=== PATIENT | female | born 1970 | race Caucasian/White ===

== ENCOUNTER 2019-02-18 10:02 | Observation (INO) | payer SELFPAY ==
[~2019-02-18 10:02] MED LIST: DEXAMETHASONE INJ 10 MG/ML VIAL IV ONE; LIDOCAINE 1% 10 ML VIAL INJ ONE; METOPROLOL TARTRATE INJ 5 MG/5 ML VIAL IV ONE; PROPOFOL 200 MG/20 ML VIAL IV ONE; raNITIdine HCL INJ 25 MG/ML VIAL IV ONE
[2019-02-18] MEDS ORDERED: HYDROmorphone HCL INJ 2 MG/ML VIAL IV ONE ×3 (10:52→13:22)
[2019-02-18] MEDS ORDERED: ONDANSETRON INJ 4 MG/2 ML VIAL IV ONE (10:52)
[2019-02-18] MEDS ORDERED: SODIUM CHLORIDE 0.9% 1000ML 1,000 ML IVS ONE (10:53)
--- NOTE | 2019-02-18 11:19 | ED.PDOC ---
History of Present Illness - General Chief Complaint: Abdominal Pain Stated Complaint: abdominal pain Time Seen by Provider: 02/18/19 10:25 Information Source: patient, family Exam Limitations: no limitations - History of Present Illness Initial Comments: RUQ PAIN X 3 WKS, RADIATES TO R SHOULDER. WORSE YESTERDAY. INTERMITTENT. NO APPETITE. POS N/V X SEVERAL EPISODES. PSH: JUST TUBAL LIGATION. STILL HAS HER GB. LMP 3 WKS AGO. Abdominal Pain Onset Location: RUQ Pain Radiation: shoulder Quality: severe, intermittent, waxing/waning Timing/Duration: getting worse Improving Factors: nothing Worsening Factors: eating Associated Symptoms: diaphoresis, nausea/vomiting Review of Systems - Review of Systems Constitutional: States: diaphoresis. Denies: chills, fever EENTM: States: no symptoms reported Respiratory: States: no symptoms reported. Denies: short of breath Cardiology: States: no symptoms reported. Denies: chest pain Gastrointestinal/Abdominal: States: abdominal pain, nausea, vomiting. Denies: constipation, diarrhea Genitourinary: Denies: dysuria, frequency, pain Musculoskeletal: States: no symptoms reported Skin: States: no symptoms reported Neurological: States: no symptoms reported Endocrine: States: no symptoms reported Hematologic/Lymphatic: States: no symptoms reported All other Systems: Reviewed and Negative Past Medical History (General) - Patient Medical History Hx Stroke: No Hx Congestive Heart Failure: No Hx Hypertension: Yes Hx Diabetes: No - Vaccination History Hx Influenza Vaccination: No Hx Pneumococcal Vaccination: No - Social History Hx Tobacco Use: No - Female History Patient is a Female of Child Bearing Age (10 -59 yrs old): Yes Family Medical History - Family History Father Family History: Unknown Living Status: Still Living Hx Family Cancer: Yes - father with squamous cell CA Physical Exam - Physical Exam General Appearance: Alert, Obvious distress Eyes, Ears, Nose, Throat Exam: PERRL/EOMI, normal ENT inspection Neck: non-tender, full range of motion Respiratory: chest non-tender, lungs clear Cardiovascular/Chest: normal peripheral pulses, regular rate, rhythm Peripheral Pulses: No deficit Gastrointestinal/Abdominal: soft, no organomegaly, no pulsatile mass, abnormal bowel sounds - DECREASED BUT NOT ABSENT. , tenderness - RUQ PAIN. POS WILKINS'S SIGN. NEG ROVSING'S SIGN. Back Exam: normal inspection, no CVA tenderness, no vertebral tenderness Extremity: normal range of motion, non-tender Neurologic: no motor/sensory deficits, normal mood/affect Skin Exam: normal color, warm/dry Lymphatic: no adenopathy Progress - Progress Progress: 02/18/19 13:28 ACUTE CHOLECYSTITIS AND CHOLELITHIASIS PER U/S. I SPOKE WITH NATALY OLIVEROS WHO IS ADMITTING HOSPITALIST. I SPOKE WITH DR. HAWKINS, GEN SURGERY, WHO PLANS FOR CHOLECYSTECTOMY TOMORROW AM. THANK YOU, [facility], FOR TAKING CARE OF THIS PATIENT. PAIN CONTROL NPO AFTER MN STARTING ZOSYN MAINTENANCE IVF. Departure - Departure Clinical Impression: Acute cholecystitis due to biliary calculus, RUQ abdominal pain, Bilirubinemia, Neutrophilic leukocytosis, Thrombocytosis, Elevated red blood cell count Cholelithiasis Qualifiers: Cholelithiasis location: gallbladder Cholecystitis presence: with cholecystitis Cholecystitis acuity: acute Biliary obstruction: without biliary obstruction Qualified Code(s): K80.00 - Calculus of gallbladder with acute cholecystitis without obstruction Nausea & vomiting Qualifiers: Vomiting type: unspecified Vomiting Intractability: non-intractable Qualified Code(s): R11.2 - Nausea with vomiting, unspecified Ascites Qualifiers: Ascites type: other type Qualified Code(s): R18.8 - Other ascites Disposition: Admit Patient Condition: Good Diet: low fat, low cholesterol Home Medications: Ambulatory Orders Aspirin [Aspirin Adult Low Dose] 81 mg PO DAILY 02/18/19 Control Pill 1 ea PO DAILY 02/18/19 Lisinopril 20 mg PO DAILY 02/18/19 Decision To Admit - Decistion To Admit Decision to Admit Reason: Admit from ER Decision to Admit Date: 02/18/19 Decision to Admit Time: 13:35
--- NOTE | 2019-02-18 12:42 | US ---
EXAM DESCRIPTION: Liver: ULTRASOUND. CLINICAL HISTORY: RUQ PAIN, SUSPECT ACUTE CHOLECYSTITIS. COMPARISON: None. TECHNIQUE: Transabdominal scannin-dimensional and Doppler modes. FINDINGS: Gallbladder: At least to gravity dependent stones with acoustic shadowing in the gallbladder measuring 9.2 and 9.8 mm. Fluid in Morison's pouch. Wall thickening 4.5 mm tender with transducer pressure. Common bile duct: caliber 5.4 mm within normal limits. Liver: normal echogenicity; contour liver capsule smooth where seen. Ascites around the liver. Intrahepatic biliary ducts normal caliber. Doppler hepatopedal flow portal vein. 9.4 mm. Long axis right lobe 13.3 cm Pancreas: normal size and echogenicity. Duct not seen. Right kidney: long axis measures 11.2 cm. Increased cortical echogenicity. Cortical thickness 11 mm. No hydronephrosis. 3.2 mm echogenic stone in the cortex. Ascites lateral to the kidney and lateral to the spleen. Also in the bilateral lower quadrants. IMPRESSION: 1. Gallbladder wall thickening with fluid in Morison's pouch. 2 gravity dependent stones. Wall thickening and tenderness with transducer pressure. Consistent with acute cholecystitis and cholelithiasis. Common bile duct caliber. Ascites in all 4 abdominal quadrants. 2. Liver normal echogenicity and normal ducts. Normal portal vein flow. Smooth capsule. Pancreas negative. 3. Right kidney with increased echogenicity in the cortex and minimal thinning. Small cortical stone but no hydronephrosis. Fluid abutting the right perirenal space. Electronically signed by: Pernell Acuna MD 02/18/2019 12:41 PM CDT
[2019-02-18] MEDS ORDERED: KCL 20MEQ/D5 1/2NS 1,000 ML IVS PRN (13:25)
[2019-02-18] MEDS ORDERED: PIPERACILLIN/TAZOBACTAM 3.375 GM in SODIUM CHLORIDE 0.9% 100ML 100 ML IVPB ONE (13:26)
[2019-02-18] MEDS ORDERED: PIPERACILLIN/TAZOBACTAM 3.375 GM VIAL IVPB ONE ×3 (13:32→21:54)
[2019-02-18] MEDS ORDERED: SODIUM CHLORIDE 0.9% 100ML 100 ML IVPB ONE ×3 (13:32→21:55)
--- NOTE | 2019-02-18 14:04 | HP ---
SUPERVISING PHYSICIAN: Den Ruiz MD CHIEF COMPLAINT: Right upper quadrant abdominal pain. HISTORY OF PRESENT ILLNESS: This is a 48-year-old female who states approximately 5 weeks ago, she started to develop some right upper quadrant pain that was intermittent. She associates this with driving her parents back and forth to [place] as her father has some squamous cell cancer that is being treated there. She states they eat at terrible restaurants and she has noted that after eating fatty foods, her symptoms are exacerbated. Throughout this time she has intermittently had some night sweats as well. However, last night, she had night sweats, nausea and vomiting as well as diarrhea. The right upper quadrant worsened and she actually had some pain in her right shoulder. Therefore, she came to the Emergency Room. When she came into the Emergency Room, her workup included lab as well as a liver ultrasound. The liver ultrasound showed gallbladder wall thickening with 2 stones. There was some tenderness with the transducer pressure and she was found to have findings consistent with acute cholecystitis. There was also found to be ascites in all 4 abdominal quadrants. Her labs were done and showed white count 12.5, hemoglobin 13.2, hematocrit 22.5, platelet count 490. She does have a left shift at 90.4 neutrophils. Chemistry shows a sodium 141, potassium 4.5, chloride 105, CO2 20, BUN 18, creatinine 1.25, glucose 159, bilirubin 1.2, AST 19, ALT 17, calcium 9.4. Lipase 29 and test is negative. Dr. Gan was consulted by the ER physician and the patient has been referred for admission for elective cholecystitis as it will probably be performed tomorrow. The patient has gotten Zosyn in the Emergency Room as well as Dilaudid for pain control. PAST MEDICAL HISTORY: 1. Hypertension, which was recently diagnosed. She does not have a primary care physician, however, went to see "[place]", who is Mamadou Ventura, who prescribed some lisinopril. 2. History of vaginal bleeding for which she sees an TABLET REPAIR in [place] and she takes control for this. PAST SURGICAL HISTORY: 1. Tubal ligation. MEDICATIONS: 1. Lisinopril 20 mg daily. 2. Aspirin 81 mg daily. 3. control pill. ALLERGIES: MEPERIDINE. FAMILY HISTORY: She does not know if any of her family have had any gallbladder issues, but her father has squamous cell carcinoma and both parents have hypertension. She is unaware of any diabetes. SOCIAL HISTORY: No drinking, smoking or illicit drugs. REVIEW OF SYSTEMS: CONSTITUTIONAL: Possible fever. No significant chills. No recent weight loss or weight gain. HEENT: No headaches, vision changes, ear pain, nasal congestion or throat pain. RESPIRATORY: No cough, hemoptysis or pleuritic chest pain. CARDIOVASCULAR: No chest pain, palpitations or peripheral edema. GASTROINTESTINAL: Positive for nausea, vomiting, diarrhea and right upper quadrant abdominal pain with radiation to the right shoulder. No constipation. GENITOURINARY: No dysuria, frequency or flank pain. HEMATOLOGIC: No easy bruising and no transfusion reaction. MUSCULOSKELETAL: No muscle cramps, joint pain or joint swelling. ENDOCRINE: No polydipsia, polyuria or polyphagia. No heat or cold intolerance. NEUROLOGIC: No syncope, paresthesias or seizures. PHYSICAL EXAMINATION: VITAL SIGNS: Blood pressure 120/74. Heart rate 62. Respiratory rate 16. Temperature 98.0. Oxygen saturation 99%. GENERAL: Ms. Ling is a 48-year-old female who is in no active distress currently. NEUROLOGIC: The patient is a little bit drowsy and slow to respond due to the Dilaudid she got earlier, but there are no focal deficits. CHEST: Lungs are clear to auscultation bilaterally. CARDIOVASCULAR: Regular rate and rhythm. Normal S1, S2. ABDOMEN: Soft. Positive bowel sounds. She complaints of tenderness to palpation in the right upper quadrant. GENITOURINARY: Deferred. EXTREMITIES: Lower extremities with pulses 2+. Capillary refill is less than 2 seconds. LABORATORY: Labs and diagnostics are as discussed in history of present illness. ASSESSMENT: 1. Acute cholecystitis. 2. Hypertension. 3. Mild metabolic acidosis on chemistry. PLAN: The patient will be admitted and placed on empiric antibiotics with Zosyn. She has already received one dose in the ER. She is also going to be placed on pain control medications. As Elias worked in the Emergency Room, we will continue that medication. She can have clear liquids throughout the day and then NPO after midnight. Dr. Gan is the surgeon consulted and he will perform cholecystectomy in the morning. She will be placed on a proton pump inhibitor for GI ulcer prophylaxis and early ambulation for DVT prophylaxis. [facility][id number] [facility]
[2019-02-18] MEDS ORDERED: SODIUM CHLORIDE 0.9% (FLUSH) 10 ML SYG IV PRN (14:19)
[2019-02-18] MEDS ORDERED: ONDANSETRON INJ 4 MG/2 ML VIAL IV PRN (14:25)
[2019-02-18] MEDS ORDERED: IV SET AND CAP CHANGE INJ INJ SCH (14:30)
[2019-02-18] MEDS ORDERED: PIPERACILLIN/TAZOBACTAM 3.375 GM in SODIUM CHLORIDE 0.9% 100ML 100 ML IVPB SCH ×2 (14:30→18:30)
[2019-02-18] MEDS: PANTOPRAZOLE SODIUM IV 40 MG VIAL IV SCH (15:32)
[2019-02-18] MEDS: LACTATED RINGERS 1,000 ML IVS PRN (18:20)
[2019-02-18] MEDS: HYDROmorphone HCL INJ 2 MG/ML VIAL IV PRN ×2 (19:40→23:29)
[2019-02-18] MEDS: PIPERACILLIN/TAZOBACTAM 3.375 GM in SODIUM CHLORIDE 0.9% 100ML 100 ML IVPB SCH (21:00)
[2019-02-19] MEDS: HYDROmorphone HCL INJ 2 MG/ML VIAL IV PRN ×2 (03:59→09:30)
[2019-02-19] MEDS: LACTATED RINGERS 1,000 ML IVS PRN (05:39)
[2019-02-19] MEDS: PIPERACILLIN/TAZOBACTAM 3.375 GM in SODIUM CHLORIDE 0.9% 100ML 100 ML IVPB SCH ×2 (05:40→14:19)
[2019-02-19] MEDS: PANTOPRAZOLE SODIUM IV 40 MG VIAL IV SCH (06:13)
--- NOTE | 2019-02-19 09:24 | PN ---
SUPERVISING PHYSICIAN: Den Ruiz MD DATE: 02/19/19 SUBJECTIVE: The patient still complains of a little bit of right upper quadrant pain, but it has been controlled with the Dilaudid. Otherwise, she has no complaints. OBJECTIVE: VITAL SIGNS: Blood pressure 127/76. Heart rate 70. Respiratory rate 17. Temperature 98.8. Oxygen saturation 97%. GENERAL: Ms. Ling is a 48-year-old female in no active distress currently. NEUROLOGIC: Alert and oriented. LUNGS: Clear to auscultation bilaterally. CARDIOVASCULAR: Regular rate and rhythm. Normal S1, S2. ABDOMEN: Soft. Positive bowel sounds. Still with right upper quadrant tenderness to palpation. LABORATORY: White count 9.4, hemoglobin 8.8 this morning. We repeated it and it was 9.0. Platelet count 306. Chemistry shows a sodium 139, potassium 3.8, chloride 107, CO2 22, BUN 14, creatinine 0.83, calcium 8.3, bilirubin normalized to 0.9. ASSESSMENT: 1. Acute cholecystitis. 2. Hypertension. 3. Mild metabolic acidosis, resolved. PLAN: We will still plan for cholecystectomy today. She has been NPO. We will continue pain medications until that time. She did have a drop in hemoglobin, but it almost seems this was due to dilutional from IV fluids. A repeat did not have any precipitous drops. We will discuss this with Dr. Gan. I did type and screen just in case that there was a drop, but given the repeat was no worse, we are not recommending any blood transfusion at this time. [facility][id number] [facility]
[2019-02-19] MEDS: LISINOPRIL 10 MG TAB PO SCH ×2 (09:45→14:53)
[2019-02-19] MEDS ORDERED: SODIUM CHLORIDE 0.9% 250ML 250 ML ONE (10:12)
[2019-02-19] MEDS ORDERED: fentaNYL CITRATE INJ 50 MCG/ML AMP ONE (10:26)
[2019-02-19] MEDS ORDERED: MIDAZOLAM INJ 2 MG/2 ML VIAL ONE (10:26)
[2019-02-19] MEDS ORDERED: BUPIVACAINE 0.5% W/EPI 30 ML VIAL INJ ONE (10:26)
[2019-02-19] MEDS ORDERED: ROCURONIUM BROMIDE 10 MG/ML VIAL ONE (10:27)
[2019-02-19] MEDS ORDERED: SODIUM CHLORIDE 0.9% 1000ML 1,000 ML ONE ×2 (10:28→14:17)
[2019-02-19] MEDS ORDERED: ELECTROLYTE-A 1,000 ML IVS ONE (11:22)
[2019-02-19] MEDS ORDERED: KETAMINE HCL 50 MG/ML SYG IV ONE (11:23)
[2019-02-19] MEDS ORDERED: hydrALAZINE HCl 20 MG/ML VIAL ONE (11:41)
[2019-02-19] MEDS ORDERED: SUGAMMADEX SODIUM 200 MG/2 ML VIAL IV ONE (11:52)
[2019-02-19] MEDS ORDERED: HYDROmorphone HCL INJ 2 MG/ML VIAL ONE (12:27)
[2019-02-19] MEDS ORDERED: ONDANSETRON INJ 4 MG/2 ML VIAL ONE (12:37)
[2019-02-19] MEDS ORDERED: HYDROmorphone HCL INJ 2 MG/ML VIAL IV ONE ×3 (12:46→13:00)
[2019-02-19] MEDS ORDERED: PIPERACILLIN/TAZOBACTAM 3.375 GM VIAL IVPB ONE (12:50)
[2019-02-19] MEDS ORDERED: SODIUM CHLORIDE 0.9% 100ML 100 ML IVPB ONE ×2 (12:50→13:05)
[2019-02-19] MEDS ORDERED: PROMETHAZINE HCL INJ 25 MG/ML VIAL ONE (13:05)
--- NOTE | 2019-02-19 13:16 | OP ---
DATE OF PROCEDURE: 02/19/19 PREOPERATIVE DIAGNOSIS: 1. Acute cholecystitis. POSTOPERATIVE DIAGNOSIS: 1. Acute cholecystectomy. PROCEDURE: 1. Laparoscopic cholecystectomy with intraoperative cholangiogram. SURGEON: Jorge Gan MD. ANESTHESIA: General and local. FINDINGS: She had an acutely inflamed gallbladder with some bile stain ascites. No perforation. Cholangiogram showed normal anatomy with free flow throughout and no filling defect. COMPLICATIONS: None. ESTIMATED BLOOD LOSS: None. SPECIMEN: Gallbladder. CONDITION: Stable. PLAN: Admit. SPECIMEN: Gallbladder. INDICATION: The patient is a 48-year-old woman with over a week of abdominal pain and was admitted through the Emergency Room last night with signs and symptoms and studies consistent with acute cholecystitis. She was consented for the procedure including all risks and benefits. She understood and wished to proceed. PROCEDURE: The patient was brought to the Operative Suite in supine position. General anesthesia was induced. She was prepped and draped in sterile fashion. Marcaine 0.5% with epinephrine was used all incision sites while maintaining upward traction. A jayne was made into the base of the umbilicus. Veress needle was introduced. There was free flow of fluid into the peritoneal cavity which was insufflated to appropriate level with CO2 gas. The 5 mm trocar was placed followed by the camera. There was no evidence of bleeding or bowel injury. The patient was positioned and subxiphoid and lateral ports were placed. The gallbladder fundus was easily identified. It was distended. There was ascites in the area. We were able to grasp it and retract it superiorly and laterally. The infundibulum was grasped. The infundibular structure was dissected free. The duct and artery were clearly visualized through the triangle of Calot. The artery was stripped and ligated and a clip was placed on the proximal duct. A ductotomy was performed. The cholangiocatheter was introduced. The cholangiogram was done with the above noted normal findings. The catheter was removed. Three clips were placed on the distal duct. The duct was ligated, as was the artery. The gallbladder was then dissected off the fossa and totally removed in the EndoCatch bag. There was a small perforating vessel on the right side in the mid-fossa. Two clips were placed there. The fossa was examined. It remained hemostatic. Under low pressure, it was hemostatic. Clips were intact. There was no bleeding or bile leak. The area was irrigated and aspirated and all aspirate was clear. The subxiphoid fascia was then closed with 0 Vicryl using a suture passer. It was airtight and non-bleeding. The remaining trocars were removed. There was no bleeding from the trocar sites. The wounds were irrigated and closed with Monocryl. Dressings were applied. The patient was awakened and taken to Recovery in stable condition to be admitted. [id number] [facility]
[2019-02-19] MEDS ORDERED: PROMETHAZINE HCL INJ 12.5 MG in SODIUM CHLORIDE 0.9% 50ML 50 ML IVPB PRN (14:01)
[2019-02-19] MEDS: SODIUM CHLORIDE 0.9% 1000ML 1,000 ML IVS PRN (14:19)
[2019-02-19] MEDS: ACETAMINOPHEN W/COD #3 TAB 1 EA TAB PO PRN ×2 (16:09→19:58)
[2019-02-20] MEDS: SODIUM CHLORIDE 0.9% 1000ML 1,000 ML IVS PRN (00:23)
[2019-02-20] MEDS: ACETAMINOPHEN W/COD #3 TAB 1 EA TAB PO PRN ×3 (00:31→10:00)
--- NOTE | 2019-02-20 03:00 | RAD ---
CLINICAL HISTORY: OPERATIVE COMPARISON: None. TECHNIQUE: FL CHOLANGIOGRAM INTRAOPERATIVE on 02/19/2019 11:30 AM CDT IMPRESSION: Two spot fluoroscopic images during intraoperative cholangiogram. Total fluoroscopic time five seconds. Electronically signed by: Rogelio Simpson MD 02/20/2019 2:58 AM CDT
[2019-02-20] MEDS: PANTOPRAZOLE SODIUM IV 40 MG VIAL IV SCH (06:05)
[2019-02-20] MEDS: LISINOPRIL 10 MG TAB PO SCH (10:06)
[2019-02-20 10:41] VITALS: BP 162/76; TEMP 98.9; O2SAT 97
--- NOTE | 2019-02-20 10:54 | CONS ---
DATE OF CONSULTATION: 02/18/19 REASON FOR CONSULTATION: Acute cholecystitis. HISTORY OF PRESENT ILLNESS: This is a 48-year-old woman who started developing right upper quadrant pain intermittently about 5 weeks ago. It was worse after fatty foods with nausea, vomiting and some night sweats. She is currently in minor distress, complaining of right upper quadrant pain. She denies any fevers or chills. No bloody emesis. Abdominal pain is in the epigastric, right upper quadrant radiating to the back. No change in her stools. PAST MEDICAL HISTORY: 1. Recently diagnosed hypertension. PAST SURGICAL HISTORY: 1. Tubal ligation. CURRENT MEDICATIONS: 1. Lisinopril. 2. Aspirin. 3. control. ALLERGIES: DEMEROL. FAMILY HISTORY: Noncontributory. SOCIAL HISTORY: She denies any smoking, drinking or illicit drug use. REVIEW OF SYSTEMS: CONSTITUTIONAL: No fever, no chills. HEENT: No headache, no visual changes. No sore throat. RESPIRATORY: No cough or wheeze. No chest pain or palpitations. GASTROINTESTINAL: As above. GENITOURINARY: No frequency, dysuria or hematuria. EXTREMITIES: No complaints. PHYSICAL EXAMINATION: VITAL SIGNS: T-max 99. Pulse 60s. Blood pressure 120/74. Oxygen saturation 98% on room air. GENERAL: She is conscious, alert and in mild distress. HEENT: Head normocephalic, atraumatic. Pupils equal and reactive. Sclerae anicteric. Oral mucosa moist. NECK: Supple. No lymphadenopathy, jugular venous distention or thyromegaly. CHEST: Clear bilaterally. HEART: Regular rate and rhythm. No murmurs, rubs or gallops. ABDOMEN: Soft. She has some right upper quadrant pain to deep palpation. No diffuse rebound or guarding. No CVA tenderness. EXTREMITIES: No cyanosis, clubbing or edema. LABORATORY: White blood cell count 12, hematocrit 42, platelet count 490. Chemistries relatively normal except for bilirubin 1.2. AST and ALT are normal. Ultrasound of the abdomen done this day revealed gallbladder wall thickening with some pericholecystic fluid and gallstones. IMPRESSION: 1. Acute cholecystectomy. PLAN: The patient has given consent for laparoscopic cholecystectomy with cholangiogram. Thank you for asking me to evaluate Ms. East. #[id number] [facility]
--- NOTE | 2019-02-20 12:03 | DS ---
SUPERVISING PHYSICIAN: Den Ruiz MD DISCHARGE DIAGNOSIS: 1. Acute cholecystitis status post cholecystectomy performed by Dr. Jorge Gan, general surgeon, postoperative day #1. 2. Hypertension. 3. Mild metabolic acidosis, resolved. HISTORY OF PRESENT ILLNESS: This is a 48-year-old female who stated she had some right upper quadrant abdominal pain that was intermittent and started approximately 5 weeks ago. She initially thought ti was due to an increase in driving as she had to drive her parents back and forth to [place] to some doctors appointments. She said her food choices were horrible and she had been eating an increased amount of fatty foods and that her symptoms worsened. She actually had some night sweats that continued and then she also had some nausea and vomiting as well as diarrhea. The right upper quadrant pain worsened and radiated to her right shoulder. Therefore, she came to the Emergency Room. Her lab workup white count 12.5, hemoglobin 13.2, hematocrit 22.5, platelet count 490. She had a left shift with 90.4 neutrophils. Chemistry showed a sodium 141, potassium 4.5, chloride 105, CO2 20, BUN 18, creatinine 1.25, glucose 159, bilirubin 1.2, AST 19, ALT 17, calcium 9.4. Lipase 29 and test was negative. She also had a liver ultrasound that showed gallbladder wall thickening with two stones. There was tenderness with transducer pressure and findings consistent with acute cholecystitis. There was also ascites in all [address] Gan was consulted by the ER physician and the patient was referred for admission for elective cholecystectomy. She received Zosyn in the Emergency Room as well as Dilaudid for pain control. HOSPITAL COURSE: Her antibiotics were continued with Zosyn and she was NPO at midnight. Dr. Gan was consulted and he performed a cholecystectomy the next day. She was also given a proton pump inhibitor for GI ulcer prophylaxis as well as early ambulation for DVT prophylaxis. She was taken to the Operative Suite for laparoscopic cholecystectomy with cholangiogram. She had no intraoperative complications. Postoperatively, her hemoglobin dropped to 8.8 and hematocrit 28.7. She was kept overnight to reevaluate her hemoglobin and hematocrit. She was transitioned from IV pain medications to Tylenol #3. She has had no problems with her pain medications. Her hemoglobin and hematocrit went up to 9.0 and 28.9. This morning, they were 8.6 and 28.9. There has not been a marked drop in H&H and she will be discharged home today in stable condition. LABORATORY: Labs and films are as per history of present illness and hospital course. DISCHARGE PLAN: The patient will be discharged home in stable condition. She will increase her activity as tolerated and resume her previous medications. I have also given her some pain medications. She will followup with Dr. Gan within the next week to 10 days for surgical followup. She is to have a low fat diet. She is to return to the hospital or call Dr. Gan's office for any problems or complications. DISCHARGE MEDICATIONS: 1. Lisinopril. 2. Aspirin. 3. control pills. 4. Acetaminophen with codeine, No. 3. [facility][id number] [facility]
== END 2019-02-20 12:02 | disposition home or self-care (01) ==
LOC: ER 10:02 → MS 14:02
PROVIDERS: ADMIT Nurse Practitioner; ATTEND Nurse Practitioner Acute Care
DX: K80.12 Calculus of gallbladder with acute and chronic cholecystitis without obstruction (principal); I10 Essential (primary) hypertension; E87.2 Acidosis; R11.2 Nausea with vomiting, unspecified; Z79.82 Long term (current) use of aspirin; Z79.899 Other long term (current) drug therapy; Z79.3 Long term (current) use of hormonal contraceptives; Z88.6 Allergy status to analgesic agent; Z98.51 Tubal ligation status; Z82.49 Family history of ischemic heart disease and other diseases of the circulatory system; Z80.9 Family history of malignant neoplasm, unspecified
CPT/HCPCS: 96361 ×2; 96366 ×2; 96365; 96375; 96376 ×3; J3010; J0360; J1170 ×10; J2405 ×3; J2543 ×4; J2550; J3490; J7030 ×4; J7050 ×6; J1100; J2250; J2780; J7120 ×2; 80053 ×3; 85014; 85018; 36415 ×3; 85025 ×3; 84703; 83690; 74300; 86900; 86901; 86850; 76705; G0378; 47563; 00790

== ENCOUNTER → 2019-03-04 | Outpatient (CLI) | payer OTHER, SELFPAY | LOC: LAB.O 10:43 | PROVIDERS: ATTEND Surgery | DX: D64.9 Anemia, unspecified (principal) ==

== ENCOUNTER 2019-03-12 10:28 | Inpatient (IN) | payer SELFPAY ==
[2019-03-12] MEDS ORDERED: SODIUM CHLORIDE 0.9% 1000ML 1,000 ML IVS PRN (10:52)
[2019-03-12] MEDS ORDERED: SODIUM CHLORIDE 0.9% (FLUSH) 10 ML SYG IV PRN ×2 (10:52→18:49)
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
[2019-03-12] MEDS ORDERED: SODIUM CHLORIDE 0.9% 1000ML 1,000 ML IVS ONE (11:34)
[2019-03-12] MEDS ORDERED: fentaNYL CITRATE INJ 50 MCG/ML AMP IV ONE ×2 (13:36→16:37)
[2019-03-12] MEDS ORDERED: ONDANSETRON INJ 4 MG/2 ML VIAL IV ONE (13:36)
--- NOTE | 2019-03-12 13:41 | CT ---
EXAM DESCRIPTION: Abdomen/Pelvis w/Contrast CLINICAL HISTORY: 48 years Female, RLQ generalized abd pain 3wks s/p Lap Pascale TECHNIQUE: This exam was performed according to our departmental dose-optimization program, which includes automated exposure control, adjustment of the mA and/or kV according to patient size and/or use of iterative reconstruction technique. COMPARISON: February 18, 2019 FINDINGS: Bibasilar volume loss. No focal consolidation or suspicious pulmonary nodule. The liver is unremarkable. No suspicious hepatic lesion. No biliary dilatation. Cholecystectomy. The portal vein is patent. The spleen, pancreas and adrenal glands are unremarkable. Normal kidneys. No hydronephrosis. No urolithiasis. Bladder is decompressed. Fibroid uterus. No adnexal mass. Scattered colonic diverticula without focal inflammatory change. No evidence of bowel obstruction. No findings to suggest appendicitis. Normal appendix. There are mildly prominent loops of small bowel in the left upper quadrant with adjacent fat stranding, this finding is likely reactive from the ascites. No free air. No adenopathy. Small volume ascites. No pneumatosis or portal venous gas. No acute or suspicious osseous abnormality. IMPRESSION: 1. Cholecystectomy. 2. Small volume ascites of uncertain etiology. Differential considerations include volume overload, liver disease and possible bile leak. 3. Mildly prominent loops of small bowel in the left upper quadrant with adjacent fat stranding. There is no obstruction, pneumatosis or portal venous gas. This finding is likely reactive from ascites. Electronically signed by: Frank Guzmán MD 03/12/2019 1:40 PM CDT
--- NOTE | 2019-03-12 17:49 | HP ---
SUPERVISING PHYSICIAN: Eloy Singh MD CHIEF COMPLAINT: Abdominal pain. HISTORY OF PRESENT ILLNESS: Ms. Ling is a 48 year-old female patient with a recent history of a laparoscopic cholecystectomy on 02/25/19. She reports that she was doing well after being discharged from the hospital but noted she has been having some worsening pain she reports as generalized, now more in the left upper quadrant that is intermittent. She has noted she has been having some fever and chills with it as well as some nausea, vomiting, diarrhea. She notes that the pain does radiate into that chest wall. She felt like it was similar to the pain she had when she had her gallbladder removed. The pain became bad enough that she presented to the Emergency Room for evaluation, Dr. Gan who recommended she be evaluated in the Emergency Room. initial workup in the Emergency Room showed she had a white count of 13,000, hemoglobin improved from the discharge currently at 11.1 and hematocrit 36.0. She does have a left shift. Chemistries were showing normal electrolytes. Creatinine normal at 1.0. Liver functions all shown to be within normal limits. Magnesium was low at 126. Lipase was normal at 35, lactic acid 1.1. Urinalysis did show a small amount of leukoesterase. Microscopic showed 5 to 6 WBCs, 10 to 20 epithelial cells and no bacteria. CT of the abdomen and pelvis with contrast showed a small amount of ascites fluid which is of uncertain etiology, with some mildly prominent loose bowel in the left upper quadrant with adjacent fat stranding. No obstruction,.pneumatosis or portal venous gas. Findings likely reactive from ascites. Given the finding of noted small amount of ascites, requested the patient have a CT-guided paracentesis to further rule out infectious process, bowel leak or other process. The patient is going to be admitted for continuation of treatment and evaluation. She was admitted in stable condition. PAST MEDICAL HISTORY: 1. Hypertension. 2. History of vaginal bleeding on oral control. . PAST SURGICAL HISTORY: 1. Tubal ligation. 2. Cholecystectomy on 02/25/19. MEDICATIONS: 1. Lisinopril 20 mg daily. 2. Aspirin 81 mg daily. 3. control pill. ALLERGIES: MEPERIDINE. FAMILY HISTORY: Her father has history of squamous cell carcinoma and both parents have hypertension. She has one brother who is health. SOCIAL HISTORY: The patient is self-employed. She is , she has 2 children. She does not drink alcohol and does not smoke. REVIEW OF SYSTEMS: CONSTITUTIONAL: Positive for general malaise, fever, no unintentional weight loss. HEENT: Denies headaches, earache, sore throat, nasal congestion. RESPIRATORY: Denies coughing, hemoptysis or pleuritic chest pain. CARDIOVASCULAR: Denies chest pain or palpitations, peripheral edema. GASTROINTESTINAL: Positive for nausea or vomiting, diarrhea with some generalized abdominal pain radiating to the left lower quadrant and right lower quadrant and right shoulder. Denies constipation. GENITOURINARY: Denies dysuria, hematuria, polyuria but was under treatment for yeast infection. HEMATOLOGIC: Denies easy bruising or transfusion reaction. MUSCULOSKELETAL: Generalized muscle cramps, joint pain but no joint swelling. ENDOCRINE: Denies polydipsia, polyuria, polyphagia. No heat or cold intolerance. NEUROLOGIC: Denies syncopal episodes, paresthesias, seizures or ataxia. PHYSICAL EXAMINATION: VITAL SIGNS: Temperature 97.8, pulse 90, blood pressure 109/62, respirations 18, oxygen saturation 99% on room air. GENERAL: The patient appears to be resting comfortably, although she says her pain is 8/10. She is alert. HEENT: Tympanic membranes are bilaterally. Oropharynx is pink, moist without any lesions. NECK: Supple, non-tender, full range of motion. No jugular venous distention. CHEST: Clear to auscultation bilaterally without rhonchi, rales, or wheezes. CARDIOVASCULAR: Regular rate and rhythm without appreciable murmurs, gallops, or rubs. ABDOMEN: Grossly tender, more so tenderness to palpation on the right lower and left lower quadrant. Bowel sounds are active. EXTREMITIES: Without cyanosis, clubbing, or edema. NEUROLOGIC: She is alert and oriented x 3. Cranial nerves II through XII are grossly intact. SKIN: Warm, pink and dry. LABORATORY: White count on admission 13,300, hemoglobin 11.1, hematocrit 36.0. RBC indices indicate a microcytic hypochromic presentation. Differential does show a left shift. Chemistries showed normal electrolytes with BUN 23, creatinine1.10. Lactic acid 11, magnesium was low at 1.6. Calcium 9.0. Liver functions all within normal limits. Lipase normal at 35. Urinalysis was unremarkable, shows small amount of bilirubin, leukoesterase with microscopic 10 to 20 epithelial cells, no bacteria seen. MICROBIOLOGY: Pending culture results and studies for cell studies. Urine culture was pending. Blood culture pending. RADIOLOGY: CT of the abdomen and pelvis with contrast per radiology interpretation, cholecystectomy with small volume ascites, uncertain etiology, differential consideration including volume overload, liver disease, possible bile leak with mildly prominent loose bowel in the left quadrant with adjacent fat stranding. No obstruction, pneumatosis or portal venous gas. Findings likely reactive from ascites. ASSESSMENT: 1. Acute abdominal pain, really doubt ascites, could be paracentesis, showing normal peritoneal fluid with culture studies pending, possibly viral gastroenteritis. 2. Nausea, vomiting, diarrhea associated with #1, likely due to a viral gastroenteritis. 4. Microcytic hypochromic anemia needing further workup, likely iron-deficiency due to dysfunctional uterine bleeding with patient having to require transfusions in the past. 5. Hypertension showing to be stable. 6. Electrolyte imbalance to include hypomagnesemia probably due to persistent diarrhea. 7. Leukocytosis with no evidence of infectious source, likely demarginalization from stress response from nausea and vomiting and viral gastroenteritis. PLAN: Ms. Ling is going to be admitted for further evaluation and treatment. She did have a paracentesis by Dr. Caputo and those results are pending. Dr. Gan has been consulted and will see the patient in the morning. Will have her on clear liquids tonight. I did discuss the patient's case with Dr. Gan who felt we needed to hold off on any antibiotic coverage at this point and just provide fluid replacement and pain management as well as antiemetics. She will get morphine, Dilaudid as needed for pain management. Will be on clear liquids. She has Phenergan and Zofran for nausea and vomiting. We will repeat labs in the morning. Anticipate her length of stay to be 2 to 3 days. She will be started on IV fluids and closely monitor her I&Os. Until we can transition to outpatient management, we will continue to monitor and treat as needed. [facility][id number] [facility]
--- NOTE | 2019-03-12 18:47 | US ---
EXAM DESCRIPTION: Paracentesis: Ultrasound CLINICAL HISTORY: abd pain,fluid per CT COMPARISON: CT scan abdomen and pelvis on this visit TECHNIQUE: The procedure was explained to the patient with risks and benefits. Patient supine on scanning table. Pernell written on abdominal skin for placement of catheter, based on ultrasound scan, at the right lower quadrant of abdomen 4 cm from umbilicus. Sterile preparation and draping. Utilizing, sterile technique, subcutaneous and deep 1% lidocaine anesthetic at the site for insertion. Scalpel used for skin opening. The 8 Fr catheter over 18 gauge introducer needle paracentesis system with self-sealing valve and stopcock, was introduced through the opening into the fluid collection with sterile ultrasound guidance. With attached 5 cc syringe, straw-colored fluid was aspirated when the catheter was in the cavity. The syringe was disconnected with 4 mL which was injected into a collection tube. An additional 2 mL was aspirated, without change in color of the fluid. This fluid was emptied into a second collection tube. The patient tolerated the procedure well with no immediate complications. Specimens were collected for laboratory evaluation. 4 culture. FINDINGS: Fluid visualized in all 4 quadrants with the most fluid seen in the right lower quadrant. Real-time imaging demonstrated the paracentesis needle within the fluid collection, confirmed with fluid aspiration. IMPRESSION: Successful, ultrasound-guided sterile aspiration of ascites fluid from right lower quadrant, with pending laboratory evaluation for culture. Dr. Gan was notified by phone when the procedure was completed. Electronically signed by: Pernell Acuna MD 03/12/2019 6:46 PM CDT
[2019-03-12] MEDS ORDERED: MORPHINE SULFATE INJ 10 MG/ML VIAL IV PRN (18:49)
[2019-03-12] MEDS ORDERED: ACETAMINOPHEN IV 1000MG 1,000 MG in PREMIX BOTTLE 1 BOTTLE IVPB ONE (18:55)
[2019-03-12] MEDS ORDERED: HYDROmorphone HCL INJ 2 MG/ML VIAL IV ONE (18:58)
[2019-03-12] MEDS ORDERED: IV SET AND CAP CHANGE INJ INJ SCH (19:00)
[2019-03-12] MEDS ORDERED: ACETAMINOPHEN IV 1000MG 100 ML ONE (19:22)
[2019-03-12] MEDS: KCL 20MEQ/D5 1/2NS 1,000 ML IVS PRN (20:05)
[2019-03-12] MEDS ORDERED: SODIUM CHLORIDE 0.9% 50ML 50 ML ONE (22:32)
[2019-03-12] MEDS ORDERED: PROMETHAZINE HCL INJ 25 MG/ML VIAL ONE (22:32)
[2019-03-12] MEDS: PROMETHAZINE HCL INJ 12.5 MG in SODIUM CHLORIDE 0.9% 50ML 50 ML IVPB PRN (22:35)
[2019-03-13] MEDS: KCL 20MEQ/D5 1/2NS 1,000 ML IVS PRN (04:50)
[2019-03-13] MEDS ORDERED: PROMETHAZINE HCL INJ 25 MG/ML VIAL ONE (06:14)
[2019-03-13] MEDS ORDERED: SODIUM CHLORIDE 0.9% 50ML 50 ML ONE (06:15)
[2019-03-13] MEDS: PROMETHAZINE HCL INJ 12.5 MG in SODIUM CHLORIDE 0.9% 50ML 50 ML IVPB PRN (06:18)
--- NOTE | 2019-03-13 07:42 | RAD ---
ABDOMEN, TWO VIEW, XR CLINICAL HISTORY: Abdominal pain. COMPARISON: CT abdomen and pelvis 03/10/2019 TECHNIQUE: Supine and standing AP images of the abdomen. . FINDINGS: There is retained contrast throughout the colon which has progressed since reference exam. There is normal bowel caliber. No free air. No pathologic calcifications. Right upper quadrant cholecystectomy clips are present. IMPRESSION: 1. No evidence of bowel obstruction or ileus. Electronically signed by: Chitra Marques DO 03/13/2019 7:41 AM CDT
[2019-03-13] MEDS ORDERED: LISINOPRIL 10 MG TAB PO SCH (09:00)
[2019-03-13] MEDS ORDERED: TRI SPRINTEC PO SCH (09:00)
[2019-03-13] MEDS ORDERED: BIFIDOBACTERIUM INFANTIS 4 MG CAP PO SCH (09:00)
[2019-03-13] MEDS ORDERED: ASPIRIN (ENTERIC COATED) 81 MG TAB PO SCH (09:00)
[2019-03-13 14:53] VITALS: O2SAT 98
[2019-03-13] MEDS ORDERED: PROMETHAZINE TAB (ER DISP) 25 MG TAB PO ONE (18:51)
[2019-03-13] MEDS ORDERED: ONDANSETRON ODT (ER DISP) 8 MG TAB PO ONE ×2 (18:51→19:34)
[2019-03-13] MEDS ORDERED: PROMETHAZINE SUPP (ER DISP) 25 MG SUP PR ONE ×2 (18:54→19:35)
[2019-03-13] MEDS: VANCOMYCIN ORAL LIQUID 2,000 MG/80 ML BOTTLE PO SCH ×2 (19:09→19:11)
[2019-03-13] MEDS ORDERED: PROMETHAZINE TAB (ER DISP) 25 MG TAB ONE (19:34)
[2019-03-13 21:54] VITALS: BP 124/72; TEMP 97.6
[2019-03-17] MEDS ORDERED: VANCOMYCIN ORAL LIQUID 2,000 MG/80 ML BOTTLE PO SCH
--- NOTE | 2019-03-26 18:24 | DS ---
SUPERVISING PHYSICIAN: Eloy Singh M.D. ADMISSION DIAGNOSIS: 1. Acute abdominal pain, really doubt ascites, could be paracentesis, showing normal peritoneal fluid with culture studies pending, possibly viral gastroenteritis. 2. Nausea, vomiting, diarrhea associated with #1, likely due to a viral gastroenteritis. 4. Microcytic hypochromic anemia needing further workup, likely iron- deficiency due to dysfunctional uterine bleeding with patient having to require transfusions in the past. 5. Hypertension showing to be stable. 6. Electrolyte imbalance to include hypomagnesemia probably due to persistent diarrhea. 7. Leukocytosis with no evidence of infectious source, likely demarginalization from stress response from nausea and vomiting and viral gastroenteritis. DISCHARGE DIAGNOSIS: 1. Acute colitis secondary to C-Diff with the patient started on oral vancomycin. 2. Nausea, vomiting, diarrhea associated with #1, likely due to a viral gastroenteritis. 4. Microcytic hypochromic anemia needing further workup, likely iron- deficiency due to dysfunctional uterine bleeding with patient having to require transfusions in the past. 5. Hypertension showing to be stable. 6. Electrolyte imbalance to include hypomagnesemia probably due to persistent diarrhea. 7. Leukocytosis with no evidence of infectious source, likely demarginalization from stress response from nausea and vomiting and viral gastroenteritis. REASON FOR HOSPITALIZATION: Ms. Ling is a 48 year-old female patient with a recent history of a laparoscopic cholecystectomy on 02/25/19. She reports that she was doing well after being discharged from the hospital but noted she has been having some worsening pain she reports as generalized, now more in the left upper quadrant that is intermittent. She has noted she has been having some fever and chills with it as well as some nausea, vomiting, diarrhea. She notes that the pain does radiate into that chest wall. She felt like it was similar to the pain she had when she had her gallbladder removed. The pain became bad enough that she presented to the Emergency Room for evaluation, Dr. Gan who recommended she be evaluated in the Emergency Room. initial workup in the Emergency Room showed she had a white count of 13,000, hemoglobin improved from the discharge currently at 11.1 and hematocrit 36.0. She does have a left shift. Chemistries were showing normal electrolytes. Creatinine normal at 1.0. Liver functions all shown to be within normal limits. Magnesium was low at 126. Lipase was normal at 35, lactic acid 1.1. Urinalysis did show a small amount of leukoesterase. Microscopic showed 5 to 6 WBCs, 10 to 20 epithelial cells and no bacteria. CT of the abdomen and pelvis with contrast showed a small amount of ascites fluid which is of uncertain etiology, with some mildly prominent loose bowel in the left upper quadrant with adjacent fat stranding. No obstruction,.pneumatosis or portal venous gas. Findings likely reactive from ascites. Given the finding of noted small amount of ascites, requested the patient have a CT-guided paracentesis to further rule out infectious process, bowel leak or other process. The patient is going to be admitted for continuation of treatment and evaluation. She was admitted in stable condition. LABORATORY STUDIES: White count on admission was 13,000, at discharge was 5,900. Hemoglobin at discharge was 8.3, hematocrit 27.0. RBC indices indicated a microcytic hypochromic anemia. Differential showed to be without a left shift. Absolute reticulocyte count was within normal limits. Chemistries on discharge showed normal electrolytes. BUN 13, creatinine 0.64, lactic acid was initially 1.1, magnesium was 1.6 on admission and at discharge with replacement was at 1.8. Iron was 41, TIBC was 431 and iron saturation 9.5, ferritin was low at 7.0. Lipase was within normal limits. Urinalysis showed a small amount of bilirubin, small amount of leukocyte esterase. Microscopic revealed 5 to 10 WBCs, 10 to 20 epithelials, 1 bacteria. She had 1 occult blood on stool which was negative. She had a C-Diff toxin by PCR that was negative. Urine cultures showed less than 10,000 urogenital neftali. Stool cultures showed normal enteric neftali. Paracentesis showed no growth after 5 days, both aerobic and anaerobic bottles. Blood cultures remain negative. C-Difficile toxin A and B were positive for antigen but negative for toxin. RADIOLOGY: CT of the abdomen and pelvis with contrast showed cholecystectomy. Small volume ascites, uncertain etiology with mildly prominent loops of small bowel in the left upper quadrant. Please see that report for details. She had a paracentesis guided ultrasound with no complications performed by Dr. Acuna with fluid sent for cultures which did result in reported color of paracentesis fluid was without any suspicious abnormalities. She had an abdominal x-ray on the morning of discharge which showed no evidence of bowel obstruction or ileus. HOSPITAL COURSE: Ms. Ling was admitted for acute colitis which was found to be due to Clostridium Difficile. She was started on oral vancomycin. She had shown no complications and was able to tolerate a diet. She was afebrile and was felt to be clinically stable enough to continue with outpatient management. DISCHARGE PHYSICAL EXAMINATION: VITAL SIGNS: Temperature 97.6, pulse 74, blood pressure 124/72, respirations 16, satting 98% on room air. GENERAL: The patient was resting comfortably, appeared to be in no acute distress. CHEST: Clear to auscultation. HEART: Regular rate and rhythm. ABDOMEN: Soft, non-tender. Positive bowel sounds. EXTREMITIES: Without any edema. NEUROLOGIC: She is alert and oriented times three. PLAN: Ms. Ling was discharged on 03/13/19 for treatment of C-Diff colitis. She was instructed to followup with Mamadou Ventura in [address] Gan in 7 to 10 days or sooner. Diet was to resume a normal diet as tolerated. Activity is increase as tolerated. She was to refer back to the hospital or call [address] Gan's office if any change in symptoms or other worsening concerning symptoms. Medications on discharge included: 1. Zofran 4 mg every 6 hours as needed, #15. No refills. 2. Vancomycin oral 125 mg every 6 hours for 10 days. 3. Phenergan tablets 25 mg every 4 hours as needed, #10. No refills. All other medications prior to hospitalization including probiotic were resumed, which included: 1. Hydrochlorothiazide. 2. Tri-Sprintec. 3. Aspirin. Condition on discharge was stable and improved. DISPOSITION: The patient was discharged home. #[id number] [facility]
== END 2019-03-13 20:15 | disposition home or self-care (01) | DRG 373 ==
LOC: ER 10:28 → MS 17:47 → OBSVTOIN 17:47
PROVIDERS: ADMIT Nurse Practitioner Family; ATTEND Nurse Practitioner Family
DX: A04.72 Enterocolitis due to Clostridium difficile, not specified as recurrent (principal); A08.4 Viral intestinal infection, unspecified; E83.42 Hypomagnesemia; D50.0 Iron deficiency anemia secondary to blood loss (chronic); I10 Essential (primary) hypertension; Z90.49 Acquired absence of other specified parts of digestive tract; Z79.82 Long term (current) use of aspirin; Z79.3 Long term (current) use of hormonal contraceptives; Z79.899 Other long term (current) drug therapy

== ENCOUNTER 2019-04-14 17:07 | Emergency (ER) | payer SELFPAY ==
[2019-04-14] MEDS ORDERED: SODIUM CHLORIDE 0.9% (FLUSH) 10 ML SYG IV PRN (17:27)
[2019-04-14] MEDS ORDERED: SODIUM CHLORIDE 0.9% 1000ML 1,000 ML IVS ONE (17:27)
[2019-04-14] MEDS ORDERED: HALOPERIDOL LACTATE INJ 5 MG/ML VIAL IV ONE (17:28)
[2019-04-14] MEDS ORDERED: diphenhydrAMINE HCL 50 MG/ML VIAL IV ONE (17:29)
--- NOTE | 2019-04-14 17:34 | ED.PDOC ---
History of Present Illness - General Chief Complaint: Abdominal Pain Time Seen by Provider: 04/14/19 17:13 Information Source: patient Exam Limitations: no limitations - History of Present Illness Initial Comments: 48 y/o F presents to the ED c/o diffuse abd pain and N/V/D onset 1 day ago. She has been having episodes like this over the last several months and had her GB removed on 02/25/[address] Gan and was admitted for same sx and dx with C. Diff and d/c on 03/26/19. Since then she had been doing okay up until today. The pain starts in the upper abd, goes to the bottom and radiates to the R shoulder. She denies fever but reports chills and breaking out in a sweat around the time she vomits. She denies blood in stool or vomit and has never seen a GI doctor for sx. Pain currently 10/10 in severity and nothing she does seems to make sx significantly better or worse. Review of Systems - Review of Systems Constitutional: States: chills, diaphoresis. Denies: fever EENTM: Denies: nose congestion, throat pain Respiratory: Denies: cough, short of breath Cardiology: Denies: chest pain, palpitations Gastrointestinal/Abdominal: States: abdominal pain, diarrhea, nausea, vomiting Genitourinary: Denies: dysuria, frequency Musculoskeletal: Denies: back pain, muscle pain Skin: Denies: lesions, rash Neurological: Denies: headache, numbness, weakness Past Medical History (General) - Patient Medical History Hx Seizures: No Hx Stroke: No Hx Asthma: No Hx of COPD: No Hx Congestive Heart Failure: No Hx Pacemaker: No Hx Hypertension: Yes Hx Diabetes: No Hx MRSA: No - Vaccination History Hx Influenza Vaccination: No Hx Pneumococcal Vaccination: No - Social History Hx Tobacco Use: No Hx Alcohol Use: No - Infrequent Hx Substance Use: No Hx Physical Abuse: No Hx Emotional Abuse: No - Female History Hx Last Menstrual Period: 01/24/19 Family Medical History - Family History Father Family History: Unknown Living Status: Still Living Hx Family Cancer: Yes - father with squamous cell CA Physical Exam - Physical Exam General Appearance: Alert, No apparent distress, Well Developed, Well Hydrated, Well Nourished Eyes, Ears, Nose, Throat Exam: PERRL/EOMI, normal ENT inspection, other - moist mucous membranes Neck: full range of motion, normal inspection Respiratory: lungs clear, normal breath sounds, no respiratory distress Cardiovascular/Chest: normal peripheral pulses, regular rate, rhythm, no edema, no murmur Peripheral Pulses: 2+ Gastrointestinal/Abdominal: soft, tenderness - diffuse, other - no guarding and no rebound Back Exam: normal inspection, no CVA tenderness Extremity: normal range of motion, normal inspection, no pedal edema Neurologic: alert, normal mood/affect, oriented x 3, other - moves all extrem ities without focal deficits Skin Exam: normal color, warm/dry Progress - Progress Progress: 04/14/19 19:29 Pt resting comfortably. Lab results discussed. Still waiting on CT report at this time. 04/14/19 20:22 Pt resting comfortably discussed lab and CT results along with plan for d/c with pt and at bedside. We discussed Rx for flagyl, tramadol and nausea medication. They will be given referral for GI in [place] as pt will need evaluation for inflammatory bowel dz. They were instructed to return for worsening sx or other concerns. We discussed pt elevate BP in ED but she has not taken her meds yet and was instructed to take them at home. Pt and have voiced understanding and agree with plan. All questions/concerns were addressed. - Results/Orders Results/Orders: 04/14/19 17:27 IV Care:Saline Lock per Protoc QSHIFT Sodium Chloride 0.9% (Flush) [Saline Flush Syringe] 10 ml IV PRN PRN 04/14/19 17:29 CLOSTRIDIUM DIFFICILE AG/TOXIN Stat 04/14/19 17:30 EKG STAT Laboratory Results - last 24 hr 04/14/19 04/14/19 04/14/19 17:55 17:55 17:55 WBC 9.5 RBC 5.70 H Hgb 12.6 Hct 39.8 MCV 69.7 L MCH 22.1 L MCHC 31.7 L RDW 23.7 H Plt Count 389 MPV 8.4 Absolute Neuts (auto) 7.30 H Absolute Lymphs (auto) 1.50 Absolute Monos (auto) 0.70 Absolute Eos (auto) 0.00 Absolute Basos (auto) 0.00 Neutrophils % 76.2 Lymphocytes % 15.4 L Monocytes % 7.8 Eosinophils % 0.2 L Basophils % 0.4 Sodium 140 Potassium 3.5 L Chloride 104 Carbon Dioxide 23 Anion Gap 16.5 BUN 12 Creatinine 0.72 BUN/Creatinine Ratio 16.7 Random Glucose 104 Serum Osmolality 279.5 Calcium 8.9 Total Bilirubin 0.7 Direct Bilirubin 0.1 Indirect Bilirubin 0.6 AST 24 ALT 24 Alkaline Phosphatase 18 L Serum Total Protein 7.3 Albumin 3.6 Lipase 28 Urine Color Yellow Urine Appearance Cloudy Urine pH 5.5 Ur Specific [place] >= 1.030 Urine Protein 30 Urine Glucose (UA) Negative Urine Ketones 15 H Urine Blood Negative Urine Nitrite Negative Urine Bilirubin Small H Urine Urobilinogen 0.2 Ur Leukocyte Esterase Negative Urine RBC 0 Urine WBC 1-3 Ur Epithelial Cells 20-30 Amorphous Sediment 4+ Urine Bacteria 1+ CT ABD/PELVIS: IMPRESSION: Presence of ascites. Thickened wall of the distal ileal loops and terminal ileum suggestive of inflammatory bowel disease or ileitis. Electronically signed by: Coco Ibarra MD 04/14/2019 7:45 PM CDT - EKG/XRAY/CT EKG: Sinus - rate 71, nonspecific ST T wave Chg Comments: Normal axis. Nl intervals. No ST-elevation Departure - Departure Clinical Impression: Colitis, Nausea vomiting and diarrhea Abdominal pain Qualifiers: Abdominal location: generalized Qualified Code(s): R10.84 - Generalized abdominal pain Ascites Qualifiers: Ascites type: other type Qualified Code(s): R18.8 - Other ascites Time of Disposition: 20:10 Disposition: Discharge to Home or Self Care Condition: Good Departure Forms: ED Discharge - Pt. Copy, Patient Portal Self Enrollment Instructions: DI for Abdominal Pain-Adult, Inflammatory Bowel Disease Diet: full liquid diet, other - advance as tolerated Referrals: Jorge Gilmore MD [Primary Care Provider] - 1-5 Days Yinka Li MD [Physicians] - 1-2 Weeks Prescriptions: Ondansetron Odt [Zofran ODT] 4 mg PO Q8H PRN #7 tab PRN Reason: Nausea Prednisone 50 mg PO DAILY #5 tab Promethazine Tab [Phenergan Tablet] 25 mg PO Q6H PRN #15 tab PRN Reason: Nausea Tramadol HCl 50 mg PO Q6H PRN #12 tab PRN Reason: Pain Home Medications: Ambulatory Orders Aspirin [Aspirin Adult Low Dose] 81 mg PO DAILY 02/18/19 Lisinopril 20 mg PO DAILY 02/18/19 Hydrochlorothiazide 12.5 mg PO DAILY 03/12/19 Probiotic Product [Probiotic] 1 tab PO DAILY 03/12/19 Tri-Sprintec 0.18/0.215/0.25 mg-35 Mcg 1 tablet PO DAILY 03/12/19 Ondansetron Tab [Zofran Tab] 4 mg PO Q6HRS PRN #15 tab 03/13/19 Promethazine Tab [Phenergan Tablet] 25 mg PO Q4H PRN #10 tab 03/13/19 Vancomycin Oral Liquid 125 mg PO Q6HR 10 Days bottle 03/13/19 Ondansetron Odt [Zofran ODT] 4 mg PO Q8H PRN #7 tab 04/14/19 Prednisone 50 mg PO DAILY #5 tab 04/14/19 Promethazine Tab [Phenergan Tablet] 25 mg PO Q6H PRN #15 tab 04/14/19 Tramadol HCl 50 mg PO Q6H PRN #12 tab 04/14/19 Additional Instructions: Return for worsening sx, persistent vomiting, fevers or other concerns.
--- NOTE | 2019-04-14 19:47 | CT ---
EXAM DESCRIPTION: CT Abdomen and Pelvis With Contrast: CLINICAL HISTORY: abd pain. COMPARISON: March 12, 2019. TECHNIQUE: Contiguous axial sections are obtained through the abdomen and pelvis as per protocol after administration of iodinated contrast. Oral contrast was not administered. . Sagittal and coronal reformations were obtained. Automatic exposure control (AEC), mA and/or kV adjustment by patient size, and/or iterative reconstructive technique was used, per departmental dose optimization program, during the performance of the CT examination. FINDINGS: The oil scout view demonstrates no abnormalities . The visualized lung bases demonstrates no abnormalities. The liver is normal in size and demonstrates normal attenuation and enhancement. [The spleen, pancreas, adrenal glands appear normal in size and attenuation without any focal abnormalities. The gallbladder is surgically absent . Kidneys demonstrate no evidence of calculi. Kidneys are normal in size, shape, attenuation and enhancement. The aorta, IVC and retroperitoneal structures appear normal . The stomach demonstrates No abnormalities. . Small bowel loops demonstrate wall thickening and distention, in the right lower quadrant, primarily involving the distal ileal loops. The appendix is normal . The colon is unremarkable. Evidence of ascites is again noted. CT examination of the pelvis demonstrates no evidence of mass or adenopathy. The urinary bladder appears normal. The [Reproductive organs are unremarkable. Inguinal regions are unremarkable. Bony structures are unremarkable. IMPRESSION: Presence of ascites. Thickened wall of the distal ileal loops and terminal ileum suggestive of inflammatory bowel disease or ileitis. Electronically signed by: Coco Ibarra MD 04/14/2019 7:45 PM CDT
[2019-04-14 20:56] VITALS: BP 167/93; TEMP 98.1; O2SAT 95
== END 2019-04-14 20:56 | disposition home or self-care (01) ==
LOC: ER 17:07
DX: K52.9 Noninfective gastroenteritis and colitis, unspecified (principal); R18.8 Other ascites; I10 Essential (primary) hypertension
CPT/HCPCS: 74177; 80048; 80076; 81001; 83690; 85025; 93005; J1200; J1630; J7030

== ENCOUNTER → 2019-06-06 | Outpatient (CLI) | payer OTHER, SELFPAY | LOC: LAB.O 11:11 | PROVIDERS: ATTEND Registered Nurse General Practice | DX: R10.84 Generalized abdominal pain (principal) ==

== ENCOUNTER → 2020-01-13 | Outpatient (CLI) | payer OTHER ==
--- NOTE | 2020-01-13 12:39 | MAM ---
EXAM DESCRIPTION: 3D Screening BILATERAL : Digital Mammography. CLINICAL HISTORY: 49 years Female ANNUAL SCREENING . "Hardened area upper outer left breast since December 2018." No personal or family history of breast cancer. Menarche age 13. Childbirth age 20. Premenopausal. Currently on HRT.. Lifetime risk of developing breast cancer (Tyrer-Cuzick model)(%): 8.3. COMPARISON: Baseline study at this facility.. No prior reports available. TECHNIQUE: Bilateral CC and MLO projection full-field images, digital tomosynthesis mammographic technique. Bilateral digital 2-D full-field MLO images. CAD available for 2-D images. FINDINGS: The breast parenchymal density pattern is: Scattered areas of fibroglandular density. No skin thickening right breast or bilateral nipple retraction. Skin thickening and indentation middle third upper outer quadrant left breast. This is overlying an irregular region of mass density, heterogeneous but predominantly more dense than the surrounding fibroglandular tissues. Spiculations are also noted, no suspicious microcalcifications. Measures 2.0 x 1.4 cm on the CC image and 2.3 cm on the MLO image. No axillary nodes on the left. 5.1 cm from the nipple at 1:30. Abutting the posterior nipple line 3.5 cm from the nipple. Second area of focal asymmetry in more medial, inferior and anterior in the left breast. Small solitary microcalcifications. Significant concern for one to 2 neoplastic lesions in the left breast. No new focal, stellate mass or density, focal asymmetry , and no suspicious microcalcifications right breast. IMPRESSION: BI-RADS CATEGORY: 0 - INCOMPLETE- Need additional imaging evaluation. RECOMMENDATIONS: FOLLOW-UP: Recall for additional imaging: Full-field LM projection left breast 2-D and tomosynthesis images, followed by directed left breast ultrasound of the region of interest.. Written communication concerning the IMPRESSION and Follow-up, will be mailed to the patient and referring health care provider. Electronically signed by: Pernell Acuna MD 01/13/2020 12:38 PM CDT
== END ==
LOC: MAMMO 09:00
PROVIDERS: ATTEND Family Medicine
DX: Z12.31 Encounter for screening mammogram for malignant neoplasm of breast (principal)

== ENCOUNTER → 2020-01-14 | Outpatient (CLI) | payer OTHER ==
--- NOTE | 2020-01-14 14:58 | MAM ---
EXAM DESCRIPTION: 3D Diagnostic, Left (accession [id number]), Breast,Left (accession [id number]): Ultrasound CLINICAL HISTORY: 49 yearsFemaleABNORMAL MAMMO palpable mass with skin changes and abnormal mass on mammography upper outer quadrant left breast. COMPARISON: Digital diagnostic bilateral breast tomosynthesis January 12. TECHNIQUE: Left breast LM projection full-field images, digital tomosynthesis technique. Left breast 2-D digital full-field images: LM projection. CAD available for 2-D images.. Transcutaneous scanning of the region of interest left breast utilizing ross-scale and Doppler modes. Scanning performed by the neurobiologist and Dr. Acuna. FINDINGS: The breast parenchymal density pattern is: Scattered areas of fibroglandular density. No left breast nipple retraction. Again seen is a spiculated mass, approximately 2.5 cm in greatest diameter, in the upper outer quadrant of the middle third of the left breast at the 1:30-2:00 position, approximately 5.1 cm from the nipple. Inferior-medial more masslike and superior-lateral, more spiculations. Not associated with microcalcifications. Overlying skin thickening. Possible focal asymmetry 3 cm from the nipple at the junction of the middle third and anterior third of the posterior nipple line. Ultrasound: Directed ultrasound of the palpable mass upper outer quadrant middle third left breast. Hypoechoic irregular mass with spiculations and extensions more superior and lateral 5 cm from the nipple at 1:00. Minimal vascularity. Taller than wide orientation. 2.4 cm antiradial and 2.1 cm radial measurements. Irregular rim of echogenicity around the mass margins with posterior acoustic shadowing. No definite cyst formation. Edema inferior and medial to the mass. IMPRESSION: BI-RADS CATEGORY 4: SUSPICIOUS. SUB-CATEGORY 4C - HIGH SUSPICION FOR MALIGNANCY. RECOMMENDATION: Surgical consultation and tissue diagnosis should be considered. The FINDINGS and follow-up plan were reviewed in person with the patient following the examination. Written communication explaining the results and follow-up will be mailed to the patient and referring care provider. CRITICAL COMMUNICATION: The critical value was communicated directly by Dr. Acuna via phone call, with Dr. Willie Barrera, at approximately 1345 hours, on January 14, 2020. The critical value was communicated directly by Dr. Acuna by email, with Ms. Rachael Real RN, OCN, [facility], Breast Imaging Nurse Navigator at [facility], at approximately 1352 hours, on January 14, 2020. Electronically signed by: Pernell Acuna MD 01/14/2020 2:56 PM CDT
== END ==
LOC: US 13:00
PROVIDERS: ATTEND Family Medicine
DX: R92.8 Other abnormal and inconclusive findings on diagnostic imaging of breast (principal)
CPT/HCPCS: 76641; 77065; G0279